=== PATIENT | male | born 1990 | race Caucasian/White ===

== ENCOUNTER 2022-07-07 16:31 | Emergency (ER) | payer OTHER ==
[~2022-07-07] VITALS: Ht 172.7 cm; Wt 99.8 kg
[2022-07-07 17:27] VITALS: BP 142/86
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
[2022-07-07] MEDS ORDERED: LIDOCAINE 1% 500 MG/ 50 ML VIAL INJ ONE (18:20)
[2022-07-07] MEDS ORDERED: KETOROLAC 30 MG/ML VIAL IM ONE (18:20)
[2022-07-07] MEDS ORDERED: LIDOCAINE MPF 1% 5 ML ONE (18:41)
--- NOTE | 2022-07-07 19:18 | NUR ---
WOUNDS TO R MEDIAL THIGH AND R ANTERIOR ELBOW IRRIGATED WITH NS x BETADINE SOLUTION. WOUND TO R MEDIAL THIGH BANDAGED WITH NON ADHERENT AND DRESSED WITH ROLL GAUZE
[2022-07-07] MEDS ORDERED: CEPH-588 PO (19:55)
[2022-07-07] MEDS ORDERED: ACET-10509 PO (19:56)
[2022-07-07] MEDS ORDERED: NAPR-54 PO (19:56)
--- NOTE | 2022-07-07 20:00 | NUR ---
PT IS INSITING TO GO HOME. NOTIFIED
[2022-07-07 20:02] VITALS: BP 142/86
== END 2022-07-07 20:02 | disposition home or self-care (01) ==
LOC: MED 16:31
DX: S71.111A Laceration without foreign body, right thigh, initial encounter (principal); S51.812A Laceration without foreign body of left forearm, initial encounter; W18.30XA Fall on same level, unspecified, initial encounter; Y93.23 Activity, snow (alpine) (downhill) skiing, snowboarding, sledding, tobogganing and snow tubing; Y92.89 Other specified places as the place of occurrence of the external cause; Y99.8 Other external cause status
CPT/HCPCS: 12005; 90471; 90715; 96372; 99284; J1885; J2001; 12004